=== PATIENT | male | born 1985 | race African-American/Black ===

== ENCOUNTER 2018-01-29 20:03 | Emergency (ER) | payer OTHER ==
[2018-01-29] MEDS: PANTOPRAZOLE 40MG INJ (PROTONIX) (C9113) IV (20:29)
[2018-01-29] MEDS: GI COCKTAIL 50ML BTL(HYOSCYAMINE/MAALOX/LIDOCAINE VISCOUS)(1:3:1) PO (20:29)
[2018-01-29 20:30] LABS: BASO % 0.5 % (0.0-1.0); EOS # 0.1 10^3/uL (0.0-0.50); EOS % 0.9 % (0.0-3.0); HEMATOCRIT 45.2 % (42.0-52.0); HEMOGLOBIN 15.8 g/dl (13.5-17.5); IMMATURE GRANULOCYTE % 0.2 % (0-3.0); LYMPH # 2.8 10^3/uL (1.5-4.5); LYMPH % 48.5 % (24.0-44.0); MEAN CORPUSCULAR VOLUME 85.9 fl (80.0-96.0); MONO # 0.7 10^3/uL (0.0-0.8); MONO % 11.2 % (0.0-5.0); NEUTROPHILS # 2.2 10^3/uL (1.8-7.7); NEUTROPHILS % 38.7 % (36.0-66.0); PLATELET COUNT, AUTOMATED 165 10^3/uL (150-450); RED BLOOD COUNT 5.26 10^6/uL (4.30-6.10); RED CELL DISTRIBUTION WIDTH 12.9 % (11.5-14.5); WHITE BLOOD COUNT 5.8 10^3/uL (4.0-10.0)
[2018-01-29 20:33] LABS: INR 1.07
[2018-01-29 20:34] LABS: PARTIAL THROMBOPLASTIN TIME 26.5 SECONDS (26.8-37.9)
[2018-01-29 20:43] LABS: ANION GAP 4 MEQ/L (8-16); BLOOD UREA NITROGEN 11 MG/DL (7-18); CALCIUM LEVEL 8.9 MG/DL (8.5-10.1); CARBON DIOXIDE LEVEL 30 MEQ/L (21-32); CHLORIDE LEVEL 107 MEQ/L (98-107); CPK CREATINE PHOSPHOKINASE 391 U/L (39-308); CREATININE FOR GFR 1.22 MG/DL (0.70-1.30); GLOMERULAR FILTRATION RATE > 60.0 (>60); GLUCOSE, FASTING 105 MG/DL (70-100); POTASSIUM SERUM 3.6 MEQ/L (3.5-5.1); SODIUM LEVEL 141 MEQ/L (136-145); TROPONIN I < 0.02 NG/ML (< 0.10)
[2018-01-29 20:44] LABS: MB/CK RELATIVE INDEX 0.25 (< OR =4)
[2018-01-29] MEDS ORDERED: ISOVUE-370 76% 100ML VIAL (Q9967) As Ordered (20:46)
== END 2018-01-29 21:52 | disposition home or self-care (01) ==
LOC: M ED 20:03
DX: K20.9 Esophagitis, unspecified (principal)
CPT/HCPCS: C9113

== ENCOUNTER 2019-03-22 03:22 | Day surgery (SDC) | payer OTHER ==
[~2019-03-22] VITALS: Ht 167.6 cm; Wt 95.0 kg
[2019-03-22] VITALS (7 sets, daily range): BP systolic 124–142; BP diastolic 69–75
[~2019-03-22 03:22] MED LIST: PROT1TAB2 PO
[2019-03-22] MEDS ORDERED: MORPHINE 4 MG/ML 1ML VIAL/SYRINGE (J2270) IV ONE ×2 (04:00→05:00)
[2019-03-22] MEDS ORDERED: NS 1,000 ML IV ONE (04:00)
[2019-03-22] MEDS ORDERED: ONDANSETRON 4MG/2ML VIAL (J2405) As Ordered ONE ×2 (04:08→10:24)
[2019-03-22] MEDS ORDERED: ONDANSETRON 4MG/2ML VIAL (J2405) IV ONE (04:15)
[2019-03-22 04:33] LABS: BASO % 0.6 % (0.0-1.0); EOS # 0.1 10^3/uL (0.0-0.50); EOS % 0.8 % (0.0-3.0); HEMATOCRIT 47.5 % (42.0-52.0); HEMOGLOBIN 16.3 g/dl (13.5-17.5); LYMPH # 3.6 10^3/uL (1.5-4.5); MEAN CORPUSCULAR HEMOGLOBIN 30.1 pg (27.0-33.0); MEAN CORPUSCULAR HGB CONC 34.3 g/dl (32.0-36.5); MEAN CORPUSCULAR VOLUME 87.8 fl (80.0-96.0); MONO # 0.6 10^3/uL (0.0-0.8); MONO % 8.8 % (0.0-5.0); NEUTROPHILS # 2.3 10^3/uL (1.8-7.7); NEUTROPHILS % 34.5 % (36.0-66.0); PLATELET COUNT, AUTOMATED 202 10^3/uL (150-450); RED BLOOD COUNT 5.41 10^6/uL (4.30-6.10); WHITE BLOOD COUNT 6.5 10^3/uL (4.0-10.0)
[2019-03-22 04:44] LABS: AMORPHOUS SEDIMENT SMALL (NEGATIVE); APPEARANCE, URINE CLEAR (CLEAR); BACTERIA, URINE AUTO NEGATIVE (NEGATIVE); BILIRUBIN, URINE AUTO NEGATIVE (NEGATIVE); BLOOD, URINE BLOOD NEGATIVE (NEGATIVE); COLOR, URINE STRAW (YELLOW); GLUCOSE, URINE (UA) AUTO NEGATIVE (NEGATIVE); KETONE, URINE AUTO NEGATIVE (NEGATIVE); LEUKOCYTE ESTERASE, URINE AUTO NEGATIVE (NEGATIVE); NITRITE, URINE AUTO NEGATIVE (NEGATIVE); PROTEIN, URINE AUTO NEGATIVE (NEGATIVE); RBC, URINE AUTO 1 /HPF (0-3); SPECIFIC GRAVITY URINE AUTO 1.015 (1.002-1.035); SQUAMOUS EPITHELIAL CELL UR AU 0 /HPF (0-6); UROBILINOGEN, URINE AUTO 0.2 mg/dL (0.0-2.0); WBC, URINE AUTO 0 /HPF (0-3)
[2019-03-22] MEDS ORDERED: ISOVUE-370 76% 100ML VIAL (Q9967) As Ordered ONE (04:53)
[2019-03-22 05:08] LABS: ALBUMIN 3.8 GM/DL (3.2-5.2); ALT/SGPT 57 U/L (12-78); BILIRUBIN,DIRECT < 0.1 MG/DL (0.0-0.2); BILIRUBIN,TOTAL 0.3 MG/DL (0.2-1.0); BLOOD UREA NITROGEN 11 MG/DL (7-18); CALCIUM LEVEL 8.9 MG/DL (8.5-10.1); CARBON DIOXIDE LEVEL 27 MEQ/L (21-32); CHLORIDE LEVEL 105 MEQ/L (98-107); CREATININE FOR GFR 1.15 MG/DL (0.70-1.30); GLOMERULAR FILTRATION RATE > 60.0 (>60); GLUCOSE, FASTING 135 MG/DL (70-100); LIPASE 220 U/L (73-393); POTASSIUM SERUM 4.1 MEQ/L (3.5-5.1); SODIUM LEVEL 138 MEQ/L (136-145); TOTAL PROTEIN 7.5 GM/DL (6.4-8.2)
--- NOTE | 2019-03-22 05:27 | REPVR ---
EXAM: CT Abdomen and Pelvis With Contrast EXAM DATE/TIME: 03/22/2019 5:02 AM CLINICAL HISTORY: 34 years old, male; Abdominal pain; Generalized TECHNIQUE: Imaging protocol: Axial computed tomography images of the abdomen and pelvis with intravenous contrast. Coronal and sagittal reformatted images were created and reviewed. Radiation optimization: All CT scans at this facility use at least one of these dose optimization techniques: automated exposure control; mA and/or kV adjustment per patient size (includes targeted exams where dose is matched to clinical indication); or iterative reconstruction. Contrast material: ISOVUE 370; Contrast volume: 100 ml; Contrast route: IV; COMPARISON: No relevant prior studies available. FINDINGS: Liver: Normal. No mass. Gallbladder and bile ducts: Normal. No calcified stones. No ductal dilation. Pancreas: Normal. No ductal dilation. Spleen: Normal. No splenomegaly. Adrenals: Normal. No mass. Kidneys and ureters: Normal. No hydronephrosis. Stomach and bowel: Normal. No obstruction. No mucosal thickening. Appendix: The appendix is dilated measuring up to 1.3 cm containing multiple appendicoliths without appreciable periappendiceal inflammation. Intraperitoneal space: Normal. No free air. No significant fluid collection. Vasculature: Normal. No abdominal aortic aneurysm. Lymph nodes: There is diffuse mesenteric haziness with shotty mesenteric lymph nodes. Bladder: Unremarkable as visualized. Reproductive: Unremarkable as visualized. Bones/joints: No acute fracture. No dislocation. Soft tissues: Unremarkable. IMPRESSION: 1. Dilated appendix up to 1.3 cm containing multiple appendicoliths suspicious for appendicitis although no significant periappendiceal inflammation seen. 2. Nonspecific mesenteric haziness with shotty lymph nodes. Correlate clinically for enteritis. Electronically signed by: Luis Naqvi On 03/22/2019 05:26:31 AM
[2019-03-22] MEDS ORDERED: METOCLOPRAMIDE INJ 10MG/2ML VIAL (J2765) IV ONE (05:30)
[2019-03-22] MEDS ORDERED: metroNIDAZOLE 500 MG in APPROPRIATE DILUENT 1 EA IV ONE (05:45)
[2019-03-22] MEDS ORDERED: PIPERACILLIN/TAZOBACTAM SOD 3.375 GM in D5W MINI-BAG PLUS 50 ML IV ONE (05:45)
[2019-03-22] MEDS ORDERED: PANT40TA3 PO (05:52)
[2019-03-22] MEDS ORDERED: MORPHINE 10 MG/ML 1ML VIAL (J2270) IV ONE ×2 (06:45)
[2019-03-22] MEDS: LR 1,000 ML IV SCH ×2 (08:15→18:15)
[2019-03-22] MEDS ORDERED: MORPHINE 4 MG/ML 1ML VIAL/SYRINGE (J2270) IV PRN (08:15)
[2019-03-22] MEDS ORDERED: ceFAZolin SOD 1 GM in D5W MINI-BAG PLUS 50 ML IV ONE (08:15)
--- NOTE | 2019-03-22 09:39 | HPEPDOC ---
General Surgery H&P Date of Admission Mar 22, 2019 Attending Physician: CLAUDIA VELASCO MD History and Physical CHIEF COMPLAINT: abdominal pain HISTORY OF PRESENT ILLNESS: Patient presented himself to the emergency apartment roughly about 2 AM for ongoing right-sided abdominal pain and discomfort as well as nausea that started about 8 PM last night and progressed through the night. He was previously well prior to this episode. Otherwise he is healthy 34-year-old male without any chronic medical problems. ALLERGIES: Please see below. HOME MEDICATIONS: Please see below. PAST MEDICAL HISTORY: 1. Gastroesophageal reflux. 2. Intermittent headaches. PAST SURGICAL HISTORY: 1. none PERSONAL/SOCIAL HISTORY: Denies smoking, alcohol use, or recreational drug use. REVIEW OF SYSTEMS: GENERAL: Denies chills, fatigue, fever, weight gain and weight loss. HEENT: Denies blurred vision and double vision. Denies ear symptoms. Denies hoarseness. NECK: Denies any neck pain. CARDIOVASCULAR: Denies chest pain and palpitations. MUSCULOSKELETAL: Denies arthralgias, back pain and thrombophlebitis. SKIN: Denies rash. NEUROLOGIC: Patient reports intermittent migraine-type headaches. PSYCHIATRIC: Denies anxiety and depression. ENDOCRINE: Denies thyroid disease. HEMATOLOGY/ONCOLOGY: Denies any bleeding or clotting disorder. HEART: Denies any chest pains, palpitations, paroxysmal dyspnea, orthopnea. PULMONARY: Denies chronic cough, dyspnea and wheezing. GASTROINTESTINAL: See HPI. GENITOURINARY: Denies dysuria, frequency, hematuria and nocturia. ENDOCRINE: Denies polydipsia, polyphagia, polyuria, heat or cold intolerance. INFECTIOUS: Denies any recent upper respiratory tract infection, UTI, need for use of antibiotics. NUTRITION: Reports good appetite. PHYSICAL EXAMINATION: VITAL SIGNS: Please see below. GENERAL APPEARANCE: Patient is sleeping in the time that I saw him, still looks somewhat uncomfortable. HEENT: Normocephalic, atraumatic. [place] palpebral conjunctivae. Anicteric sclerae. Lips moist. CHEST: No chest wall abnormalities. Normal respiratory motion/effort. NECK: Supple. No thyromegaly. No lymphadenopathies. LUNGS: Lung sounds are clear to auscultation bilaterally. No wheezing appreci ated. HEART: No chest wall abnormalities. Heart rate and rhythm are regular with no murmurs. ABDOMEN: Abdomen is relatively flat, soft, nondistended. Tender to palpation over the right lower quadrant area with mild guarding. Nontender and has had the abdomen. SKIN: Warm, moist. EXTREMITIES: Extremities have no deformities. No edema identified. NEUROLOGICAL: Sleeping when I entered room, easy to wake up, also, oriented. ANCILLARIES: . LABORATORY DATA: Please see below. MICROBIOLOGY: Please see below. IMAGING: CT abdomen and pelvis 1. Dilated appendix up to 1.3 cm containing multiple appendicoliths suspicious for appendicitis although no significant periappendiceal inflammation seen. 2. Nonspecific mesenteric haziness with shotty lymph nodes. Correlate clinically for enteritis. IMPRESSION AND PLAN: Acute Appendicitis with Localized Peritonitis Patient's history, clinical examination as well as imaging studies consistent with acute appendicitis with multiple appendicoliths within the lumen of the appendix with associated inflammation. He is localized tenderness over the right lower quadrant area. He is not showing any severe signs of sepsis so probably not perforated yet this point. We are making plans to bring him to the operating room to perform laparoscopic appendectomy. He has been given a dose of Zosyn 3.375 g have. I'll switch him to Unasyn as I don't believe he needs stat expanded coverage while awaiting surgery. I discussed with the patient the details of the proposed procedure, the benefits of performing the procedure, the most common risks on doing the procedure. This may include risks from general anesthesia, risks from laparoscopy including bowel injury, vascular injury, risks from the appendicitis including abscess formation. I have given him a chance to ask questions, voice out concerns. Patient has agreed to proceed Vital Signs Vital Signs Date Time Temp Pulse Resp B/P (MAP) Pulse Ox O2 Delivery O2 Flow Rate FiO2 03/22/19 06:53 88 97 03/22/19 06:50 136/70 (92) 03/22/19 06:45 20 03/22/19 06:08 97.2 03/22/19 04:30 Room Air I&Os I&O- Last 24 Hours up to 6 AM 03/22/19 06:00 Intake Total 1000 ml Balance 1000 ml Laboratory Data Labs 24H Laboratory Tests 2 03/22/19 04:15: Immature Granulocyte % (Auto) 0.3, White Blood Count 6.5, Red Blood Count 5.41, Hemoglobin 16.3, Hematocrit 47.5, Mean Corpuscular Volume 87.8, Mean Corpuscular Hemoglobin 30.1, Mean Corpuscular Hemoglobin Concent 34.3, Red Cell Distribution Width 13.2, Platelet Count 202, Neutrophils (%) (Auto) 34.5L, Lymphocytes (%) (Auto) 55.0H, Monocytes (%) (Auto) 8.8H, Eosinophils (%) (Auto) 0.8, Basophils (%) (Auto) 0.6, Neutrophils # (Auto) 2.3, Lymphocytes # (Auto) 3.6, Monocytes # (Auto) 0.6, Eosinophils # (Auto) 0.1, Basophils # (Auto) 0.0, Nucleated Red Blood Cells % (auto) 0.0, Urine Appearance CLEAR, Urine Color STRAW, Urine pH 6.0, Urine Specific [place] 1.015, Urine Protein NEGATIVE, Urine Glucose (UA) NEGATIVE, Urine Ketones NEGATIVE, Urine Urobilinogen 0.2, Urine Bilirubin NEGATIVE, Urine Leukocyte Esterase NEGATIVE, Urine Blood NEGATIVE, Urine Nitrite NEGATIVE, Urine WBC (Auto) 0, Urine RBC (Auto) 1, Urine Hyaline Casts (Auto) 0, Urine Bacteria (Auto) NEGATIVE, Urine Squamous Epithelial Cells 0, Urine Amorphous Sediment SMALLH, Urine Sperm (Auto) , Anion Gap 6L, Glomerular Filtration Rate > 60.0, Calcium Level 8.9, Aspartate Amino Transf (AST/SGOT) 40 H, Alanine Aminotransferase (ALT/SGPT) 57, Alkaline Phosphatase 76, Total Bilirubin 0.3, Direct Bilirubin < 0.1, Total Protein 7.5, Albumin 3.8, Albumin/Globulin Ratio 1.03, Lipase 220 CBC/BMP Laboratory Tests 03/22/19 04:15 Red Blood Count 5.41, Mean Corpuscular Volume 87.8, Mean Corpuscular Hemoglobin 30.1, Mean Corpuscular Hemoglobin Concent 34.3, Red Cell Distribution Width 13.2, Neutrophils (%) (Auto) 34.5 L, Lymphocytes (%) (Auto) 55.0 H, Monocytes (%) (Auto) 8.8 H, Eosinophils (%) (Auto) 0.8, Basophils (%) (Auto) 0.6, Neutrophils # (Auto) 2.3, Lymphocytes # (Auto) 3.6, Monocytes # (Auto) 0.6, Eosinophils # (Auto) 0.1, Basophils # (Auto) 0.0 Microbiology Microbiology 03/22/19 Urine Culture, Received Pending Home Medications Scheduled Pantoprazole Sodium (Pantoprazole Sodium) 40 Mg Tablet., 40 MG PO DAILY, (Reported) PATIENT STATES HE HAS NOT TAKEN IN A WHILE Allergies Coded Allergies: No Known Allergies (Unverified , 01/29/18) A-FIB/CHADSVASC A-FIB History Current/History of A-Fib/PAF?: No Current PO Anticoag Therapy: No CLAUDIA VELASCO MD Mar 22, 2019 07:16
[2019-03-22] MEDS ORDERED: BUPIVACAINE HCL 0.25% 30 ML VIAL As Ordered ONE (09:43)
[2019-03-22] MEDS ORDERED: LIDOCAINE 1% SDV INJ 30 ML VIAL As Ordered ONE (09:43)
[2019-03-22] MEDS ORDERED: UNASYN 1.5 GM VIAL As Ordered ONE (10:08)
[2019-03-22] MEDS ORDERED: LIDOCAINE 2% INJ 100 MG/5 ML SDV (FOR ANES.) As Ordered ONE ×2 (10:10→10:38)
[2019-03-22] MEDS ORDERED: ROCURONIUM BROMIDE 50 MG/5 ML VIAL As Ordered ONE (10:10)
[2019-03-22] MEDS ORDERED: PROPOFOL 200 MG/20 ML VIAL As Ordered ONE (10:10)
[2019-03-22] MEDS ORDERED: MIDAZOLAM INJ 2 MG/2 ML VIAL (J2250) As Ordered ONE (10:10)
[2019-03-22] MEDS ORDERED: dexameTHASONE 4 MG/ML 1ML VIAL (J1100) As Ordered ONE (10:11)
[2019-03-22] MEDS ORDERED: fentaNYL 100 MCG/2 ML INJECTION (J3010) As Ordered ONE ×2 (10:11→10:37)
[2019-03-22] MEDS ORDERED: SUGAMMADEX SODIUM 500 MG/5 ML VIAL (BRIDION) As Ordered ONE (10:24)
[2019-03-22] MEDS ORDERED: ACETAMINOPHEN 1000MG 100ML IV BTL (OFIRMEV) (J0131 PER 10MG) As Ordered ONE (10:37)
[2019-03-22] MEDS ORDERED: KETOROLAC 60 MG/2 ML VIAL (J1885) As Ordered ONE (10:37)
[2019-03-22] MEDS: AMPICILLIN SOD/SULBACTAM SOD 3 GM in D5W MINI-BAG PLUS 100 ML IV SCH ×2 (10:56→19:25)
[2019-03-22] MEDS ORDERED: LR 1,000 ML IV SCH ×2 (11:21→12:00)
[2019-03-22] MEDS ORDERED: ONDANSETRON 4MG/2ML VIAL (J2405) IV PRN ×2 (11:30→12:00)
[2019-03-22] MEDS ORDERED: NORCO, ANEXSIA 5/325MG TABLET (HYDROcodone/ACETAMINOPHEN) PO PRN (11:30)
[2019-03-22] MEDS ORDERED: AMPICILLIN SOD/SULBACTAM SOD 3 GM in D5W MINI-BAG PLUS 100 ML IV SCH (11:30)
[2019-03-22] MEDS ORDERED: KETOROLAC 30 MG/ML VIAL (J1885) IV PRN (11:30)
--- NOTE | 2019-03-22 11:33 | ROOPDOC ---
[facility] Report Of Operation Report of Operation DATE OF PROCEDURE: 03/22/19 PREPROCEDURE DIAGNOSES: Acute appendicitis. POSTPROCEDURE DIAGNOSES: Same. PROCEDURE: Laparoscopic appendectomy. SURGEON: Newton Hummel MD HOSPICE ENTRANCE ATTENDANT: ANESTHESIA: Gen. anesthesia. ESTIMATED BLOOD LOSS: Approximately 10 mL. COMPLICATIONS: None. REMARKS: Healthy 34-year-old male with 1 day history of abdominal pain centered in the right lower quadrant area, tenderness on the right lower abdomen and CT findings of dilated appendix with periappendiceal inflammation up to 1.3 cm. PROCEDURE NOTE: Appendix noted to be enlarged and dilated throughout its course up to the base which appears healthy. Prominent venous congestion. No perforation or ischemia. Minimal surrounding periappendiceal inflammation. No fluid collections or abscess. DESCRIPTION OF PROCEDURE: Patient has been given a dose of Zosyn perioperatively in the emegency room. Patient was brought to the operating room, placed supine on the table. Sequential compression device placed for DVT prophylaxis. General endotracheal anesthesia started. The abdomen prepped and draped in usual sterile fashion. After a surgical timeout, we began our surgery Entry into the abdomen done through an incision above the umbilicus. Veress needle inserted on a controlled fashion. Intra-abdominal placement confirmed with saline drop technique. CO2 insufflation started to a pressure of 15 mmHg. Using the same incision an 8 mm port was placed under direct vision of laparoscope. Insertion site was inspected for injury and none was found. He was placed on a Trendelenburg position the right side tilted to about 30 to allow for better visualization of the appendix. Two 5 mm working ports were placed at the suprapubic area and left lower quadrant area under direct vision. Operative findings: The appendix was easily identified and dilated and distended minimally purplish in color but no gross perforation. Prominent venous congestion on the alfaro. No noticeable free fluid collections or abscess noted. The appendix was located. The Surrounding bowels retracted away from the appendix. This was grasped to pull the base of the appendix into view. The mesoappendix was divided using Harmonic scalpel down to the base. Two PDS Endoloops were placed to ligate the appendix at its base then divided with a Harmonic Scalpel, the stump cauterized. Stump appears healthy. Appendix was then delivered into an Endo Catch bag by removing the 8 mm port. After re- insufflation the surgical site was inspected for hemostasis, Surrounding areas of the abdomen and inspected for fluid collections or signs of injury. The abdomen was deflated. All ports removed. The umbilical fascial defect repaired with 0 Vicryl in a mattress fashion. All skin incisions closed with 4-0 Monocryl in a subcuticular fashion. Steri-Strips and gauze dressing used for wound coverage. Patient was promptly awake and extubated and brought to recovery room stable. All counts of sponges and instruments verified to be correct. NEWTON HUMMEL MD Mar 22, 2019 11:33
[2019-03-22] MEDS ORDERED: METOCLOPRAMIDE INJ 10MG/2ML VIAL (J2765) IV PRN (12:00)
[2019-03-22] MEDS ORDERED: oxyCODONE 5MG TAB PO PRN (12:00)
[2019-03-22] MEDS ORDERED: MORPHINE 10 MG/ML 1ML VIAL (J2270) IV PRN (12:00)
[2019-03-22] MEDS ORDERED: fentaNYL 100 MCG/2 ML INJECTION (J3010) IV PRN (12:00)
[2019-03-22] MEDS: SENOKOT S TAB PO SCH (20:46)
[2019-03-23] VITALS: BP 132/72
[2019-03-23] MEDS: AMPICILLIN SOD/SULBACTAM SOD 3 GM in D5W MINI-BAG PLUS 100 ML IV SCH ×2 (01:38→06:55)
[2019-03-23 04:00] VITALS: BP 120/61
[2019-03-23] MEDS: LR 1,000 ML IV SCH (04:15)
[2019-03-23] MEDS: NORCO, ANEXSIA 5/325MG TABLET (HYDROcodone/ACETAMINOPHEN) PO PRN ×2 (05:02→12:26)
[2019-03-23 08:00] VITALS: BP 122/58
[2019-03-23] MEDS: SENOKOT S TAB PO SCH (08:47)
[2019-03-23] MEDS ORDERED: PANTOPRAZOLE 40MG TAB (PROTONIX) PO SCH (09:00)
[2019-03-23] MEDS ORDERED: HYDR-4571 PO (10:35)
--- NOTE | 2019-03-23 10:39 | IPNPDOC ---
Subjective General Date/Time Seen The patient was seen on 03/23/19 at 10:37. Subject Chief Complaint/History The patient is a 34-year-old male admitted with a reason for visit of Acute Appendicitis. Patient reports feeling comfortable. He is tolerating regular food. He denies any nausea, vomiting, diarrhea. No febrile episodes. Current Medications Current Medications Current Medications Acetaminophen/ Hydrocodone Bitart ([place], Anexsia 5/325) 1 tab Q4HP PRN PO MODERATE PAIN (PS 5-7) Last administered on 03/23/19at 05:02; Start 03/22/19 at 11:30 Acetaminophen/ Hydrocodone Bitart ([place], Anexsia 5/325) 2 tab Q6HP PRN PO SEVERE PAIN (PS 8-10); Start 03/22/19 at 11:30 Ampicillin Sodium/ Sulbactam Sodium 3 gm/Dextrose 100 ml @ 200 mls/hr Q6H IV ; Start 03/22/19 at 11:30; Stop 03/22/19 at 12:09; Status DC Ampicillin Sodium/ Sulbactam Sodium 3 gm/Dextrose 100 ml @ 200 mls/hr Q6H IV L ast administered on 03/23/19at 06:55; Start 03/22/19 at 13:00 Fentanyl Citrate (Sublimaze) 25 mcg Q5MP PRN IV MODERATE PAIN (PS 4-7); Start 03/22/19 at 12:00; Stop 03/22/19 at 13:00; Status DC Home Med (Med Rec Complete!) ASDIRECTED XX ; Start 03/22/19 at 06:00; Stop 03/22/19 at 06:08; Status DC Ketorolac Tromethamine (ToRADol) 30 mg Q6HP PRN IV MILD/MODERATE PAIN (PS 1-7) Last administered on 03/23/19at 10:20; Start 03/22/19 at 11:30; Stop 03/27/19 at 11:29 Lactated Ringer's 1,000 ml @ 100 mls/hr Q10H IV Last administered on 03/22/19at 08:15; Start 03/22/19 at 08:15 Lactated Ringer's 1,000 ml @ 100 mls/hr Q10H IV ; Start 03/22/19 at 11:21; Stop 03/22/19 at 12:06; Status DC Lactated Ringer's 1,000 ml @ 100 mls/hr Q10H IV ; Start 03/22/19 at 12:00; Stop 03/22/19 at 13:00; Status DC Metoclopramide HCl (REGLAN INJection) 10 mg Q6HP PRN IV NAUSEA OR VOMITING; Start 03/22/19 at 12:00; Stop 03/22/19 at 13:00; Status DC Morphine Sulfate (Morphine Sulfate Inj) 2 mg Q5M PRN IV MODERATE/SEVERE PAIN (PS 5-10); Start 03/22/19 at 12:00; Stop 03/22/19 at 13:00; Status DC Morphine Sulfate (Morphine Sulfate Inj) 4 mg Q4H PRN IV PAIN; Start 03/22/19 at 08:15 Ondansetron HCl (ZOFRAN INJection) 4 mg Q4HP PRN IV NAUSEA OR VOMITING; Start 03/22/19 at 12:00; Stop 03/22/19 at 13:00; Status DC Ondansetron HCl (ZOFRAN INJection) 4 mg Q6HP PRN IV NAUSEA OR VOMITING; Start 03/22/19 at 11:30 Oxycodone HCl (Roxicodone, Oxyir) 5 mg ASDIRECTED PRN PO MILD/MODERATE PAIN (PS 1-7); Start 03/22/19 at 12:00; Stop 03/22/19 at 13:00; Status DC Pantoprazole Sodium (Protonix) 40 mg DAILY PO Last administered on 03/23/19at 08:47; Start 03/23/19 at 09:00 Senna/Docusate Sodium (Senokot S) 1 tab BID PO Last administered on 03/23/19at 08:47; Start 03/22/19 at 21:00 Allergies Coded Allergies: No Known Allergies (Unverified , 01/29/18) Objective Physical Examination Examination GENERAL APPEARANCE:comfortable. SKIN: Warm and moist. HEENT: Normocephalic, atraumatic. [place] palpebral conjunctiva, anicteric sclerae. Lips and mucosa appear moist. NECK: Supple, no thyromegaly. No obvious jugular venous distention. LUNGS: Clear to auscultation bilaterally. No wheezing appreciated. HEART: No chest wall abnormalities. Regular rate and rhythm with no murmurs appreciated. ABDOMEN: Abdomen is nondistended, soft, nontender on palpation. laparoscopic appendectomy port sites dressings clean, dry, intact.. EXTREMITIES: Extremities have no deformities. No edema identified. Vital Signs Vital Signs Date Time Temp Pulse Resp B/P (MAP) Pulse Ox O2 Delivery O2 Flow Rate FiO2 03/23/19 08:00 98.1 68 17 122/58 (79) 100 03/22/19 11:49 2 03/22/19 09:20 Room Air I&Os I&O- Last 24 Hours up to 6 AM 03/23/19 05:59 Intake Total 3130 ml Output Total 2600 ml Balance 530 ml Laboratory Data Microbiology Microbiology 03/22/19 Urine Culture - Final, Complete Impression POD1 Laparoscopic Appendectomy for Acute Appendicitis looks well OK to go home no further antibiotics follow up with me in 2 weeks Plan / VTE VTE Prophylaxis Ordered?: No VTE Exclusion Mechanical Proph: Low Risk for VTE CLAUDIA VELASCO MD Mar 23, 2019 10:39
[2019-03-23 12:00] VITALS: BP 147/70
== END 2019-03-23 14:15 | disposition home or self-care (01) ==
LOC: M ED 03:22 → M SDC 07:17 → M PED 12:50 → M SDC 03-23 14:15
PROVIDERS: ATTEND Surgery
DX: K35.890 Other acute appendicitis without perforation or gangrene (principal); K21.9 Gastro-esophageal reflux disease without esophagitis
CPT/HCPCS: 36415; 44970; 74177; 80048; 80076; 81001; 83690; 85025; 87086; 88302; 96361; 96365; 96375; 96376; 99285; J0131; J1100; J1885; J2250; J2270; J2405; J2543; J2765; J3010; Q9967

== ENCOUNTER 2019-12-04 01:07 | Emergency (ER) | payer OTHER ==
[~2019-12-04] VITALS: Ht 182.9 cm; Wt 98.6 kg
[~2019-12-04 01:07] MED LIST changes: +HYDR-4571 PO; +PANT40TA3 PO
[2019-12-04] MEDS ORDERED: ACETAMINOPHEN TAB 650MG DOSE (2X325MG) PO ONE (02:30)
[2019-12-04 05:30] VITALS: BP 125/81
== END 2019-12-04 05:44 | disposition home or self-care (01) ==
LOC: M ED 01:07
DX: R50.9 Fever, unspecified (principal); J06.9 Acute upper respiratory infection, unspecified

== ENCOUNTER 2019-12-10 11:14 | Emergency (ER) | payer OTHER ==
[2019-12-10] MEDS ORDERED: ACET-683 PO (11:23)
[2019-12-10 12:01] LABS: BASO % 0.4 % (0.0-1.0); HEMATOCRIT 47.3 % (42.0-52.0); HEMOGLOBIN 16.3 g/dl (13.5-17.5); LYMPH # 1.6 10^3/uL (1.5-5.0); LYMPH % 28.8 % (24.0-44.0); MEAN CORPUSCULAR HEMOGLOBIN 29.5 pg (27.0-33.0); MEAN CORPUSCULAR HGB CONC 34.5 g/dl (32.0-36.5); MEAN CORPUSCULAR VOLUME 85.5 fl (80.0-96.0); MONO # 0.6 10^3/uL (0.0-0.8); MONO % 10.8 % (0.0-5.0); NEUTROPHILS # 3.2 10^3/uL (1.5-8.5); NEUTROPHILS % 59.8 % (36.0-66.0); PLATELET COUNT, AUTOMATED 101 10^3/uL (150-450); RED BLOOD COUNT 5.53 10^6/uL (4.30-6.10); WHITE BLOOD COUNT 5.4 10^3/uL (4.0-10.0)
[2019-12-10] MEDS ORDERED: ISOVUE-370 76% 100ML VIAL (Q9967) As Ordered ONE (12:13)
[2019-12-10] MEDS ORDERED: NS 1,000 ML IV SCH (12:15)
[2019-12-10 12:28] LABS: ALBUMIN 3.4 GM/DL (3.2-5.2); ALT/SGPT 109 U/L (12-78); BILIRUBIN,DIRECT 0.2 MG/DL (0.0-0.2); BILIRUBIN,TOTAL 0.5 MG/DL (0.2-1.0); BLOOD UREA NITROGEN 9 MG/DL (7-18); CALCIUM LEVEL 8.3 MG/DL (8.5-10.1); CARBON DIOXIDE LEVEL 26 MEQ/L (21-32); CHLORIDE LEVEL 103 MEQ/L (98-107); GLOMERULAR FILTRATION RATE > 60.0 (>60); GLUCOSE, FASTING 137 MG/DL (70-100); LIPASE 63 U/L (73-393); POTASSIUM SERUM 3.9 MEQ/L (3.5-5.1); SODIUM LEVEL 136 MEQ/L (136-145); TOTAL PROTEIN 6.9 GM/DL (6.4-8.2); TROPONIN I < 0.02 NG/ML (< 0.10)
[2019-12-10 12:32] LABS: CK-MB VALUE MASS 1.9 NG/ML (<3.6); CPK CREATINE PHOSPHOKINASE 3207 U/L (39-308); MB/CK RELATIVE INDEX 0.06 (< OR =4)
[2019-12-10] MEDS ORDERED: ACETAMINOPHEN TAB 650MG DOSE (2X325MG) PO ONE ×2 (13:15→15:45)
--- NOTE | 2019-12-10 13:58 | REP ---
CT ANGIOGRAM CHEST: TECHNIQUE: Axial contrast enhanced images from the thoracic inlet to the upper abdomen using 100 mL Isovue 370 intravenous contrast material with multiplanar reformations. There is no CT evidence of pulmonary embolism. There is no thoracic aneurysm or dissection. The heart is normal in size. There is no evidence of mediastinal, hilar or chest wall adenopathy. There is no pericardial effusion. There is a tiny right pleural effusion. There are patchy parenchymal infiltrates with ground-glass attenuation bilaterally, which are primarily peripherally located. There are small areas of more dense consolidative opacity. Visualized upper abdominal structures are unremarkable. IMPRESSION: Scattered diffuse bilateral predominantly peripheral ground-glass infiltrates with small areas of intermingled consolidative opacity in both lungs. Findings are compatible with COVID-19 infection. Tiny right pleural effusion. No evidence of pulmonary embolism. Electronically Signed by Vazquez Sanford MD 12/10/2019 02:10 P
[2019-12-10] MEDS ORDERED: NS 1,000 ML IV ONE (14:30)
--- NOTE | 2019-12-10 14:49 | CR.PDOC ---
General Date of Consultation: Dec 10, 2019 Consultation REASON FOR CONSULTATION/CHIEF COMPLAINT: Rhabdomyolysis / Who presented to the emergency room with complaints of pleuritic chest pain HISTORY OF PRESENT ILLNESS: Patient is a 34-year-old male with a PMHx of GERD, Hx of Malaria (s/p Chloroquine) and recent diagnosis of COVID-19 (Friday12/04/2019) who presented to the ER with complaints of chest pain that started 2 days ago. Patient reports that hes been experiencing pleuritic chest pain for the last 2 days. He notes that when he coughs he begins to experience chest pain across the front of his chest. Alleviated with rest, aggravated with cough. He continues to experience fevers at home. He reported that on Friday when he was diagnosed here, he had a temperature of 102. Currently in the emergency room, he has a temperature of 101.8. Patient reports that he does not feel shortness of breath at rest or with movement, but does experience profuse coughing with mild expectoration of sputum described as clear without evidence of blood. Patient has indicated that he has some nausea and constipation. Denies any abdominal discomfort, urinary discomfort or vomiting. Emergency room providers have contacted hospitalist service after completing lab work that had indicated an elevated CK level. Patient has attested that he has not been drinking enough fluids over the last 7 days. He also reports that he had history of rhabdomyolysis from a gym workout several years ago. ALLERGIES: Please see below. HOME MEDICATIONS: Please see below. 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 and travels in [facility] - Lives with at [address] - Occupation; retiree from [employer] REVIEW OF SYSTEMS: 10 point review of systems complete, all negative otherwise stated in HPI PHYSICAL EXAMINATION: - Vitals: BP 135/83, HR 98, RR 18, Sat 97%RA, Temp 98.1F - General: Lying in bed, Speaking in full sentences, Mask in place, AAOx3 - HEENT: NC, AT, PERRLA - CVS: RRR, +S1S2 - Lungs: Fair air entry bilaterally, No appreciable wheezing / rales / rhonchi - Abdomen: Soft, Non-distended, Non-tender - Extremities: No lower extremity edema, No calf tenderness - Neuro: No focal motor or sensory deficit - Skin: No visible rashes LABORATORY DATA: Please see below. ASSESSMENT/PLAN: Rhabdomyolysis - likely 2/2 poor oral intake of fluids with fevers - Patient has reported that he has not remain hydrated of the last 7 days - He denies any nausea or vomiting and attests that he can continue to take in oral fluid hydration - Patients fevers in the emergency room have resolved with Tylenol - Patient CK levels were noted to be elevated at 3200 - Elevated AST / ALT - likely 2/2 rhabdomyolysis - Patient will be given 1 L bolus with instructions to increase fluid hydration orally by at least 1.5-2 liters daily with an electrolyte based drink - Discussed patients option for observation for continued hydration vs home; discussed risks and benefits - At this point, patient would like to go home after receiving IV fluid hydration he has indicated he will increase his fluid intake - Advised that we will repeat CK levels after IV fluid hydration; assuming they continue to trend down he will be discharged home - Case was discussed with ER provider Pleuritic chest pain - likely 2/2 COVID 19 infection, unlikely 2/2 pulmonary embolism, unlikely 2/2 cardiac etiology - Patient currently saturating well on room air at 97% - Patient reports that his pleuritic chest pain is nonexistent when he doesnt cough - Patient is hemodynamically stable and is currently afebrile - EKG was reviewed without any evidence of ischemic change - CTA Chest 12/09: PATCHY BILATERAL PERIPHERAL GROUND GLASS INFILTRATES COMPATIBLE WITH COVID19. SOME SMALL AREAS OF CONSOLIDATION. TINY RT EFFUSION. NO PE - Advised that he continue with Tylenol to control fevers - Patient has requested that he get Hydroxychloroquine upon discharge (400mg PO BID x 1 day, 200mg PO BID x 4 day) discussed with ER provider - Continue home quarantine - Discussed case with Infectious disease, Dr. Oliva Elevated AST and ALT - Likely a result of rhabdomyolysis - Advised patient that repeat lab work should be completed after his acute condition resolves - If levels continue to persistently remain elevated, consider hepatitis profile - This has been described to the patient Thrombocytopenia - likely 2/2 acute viral illness - No evidence of bleeding - Will need repeat lab work completed once acute episodes resolve Hx of Malaria - s/p Chloroquine treatment GERD - Currently not on any medication DVT prophylaxis - Will consider starting Heparin on admission Vital Signs/I&O Vital Signs Date Time Temp Pulse Resp B/P (MAP) Pulse Ox O2 Delivery O2 Flow Rate FiO2 12/10/19 14:30 150/81 (104) 12/10/19 14:29 112 20 98 Room Air 12/10/19 11:29 98.1 Laboratory Data Labs 24H Laboratory Tests 2 12/10/19 11:39: Immature Granulocyte % (Auto) 0.2, Neutrophils (%) (Auto) 59.8, Lymphocytes (%) (Auto) 28.8, Monocytes (%) (Auto) 10.8H, Eosinophils (%) (Auto) 0.0, Basophils (%) (Auto) 0.4, Neutrophils # (Auto) 3.2, Lymphocytes # (Auto) 1.6, Monocytes # (Auto) 0.6, Eosinophils # (Auto) 0.0, Basophils # (Auto) 0.0, Nucleated Red Blood Cells % (auto) 0.0, Anion Gap 7L, Glomerular Filtration Rate > 60.0, Calcium Level 8.3L, Total Bilirubin 0.5, Direct Bilirubin 0.2, Aspartate Amino Transf (AST/SGOT) 122H, Alanine Aminotransferase (ALT/SGPT) 109H, Alkaline Phosphatase 63, Total Creatine Kinase 3207H, Creatine Kinase MB 1.9, Creatine Kinase MB Relative Index 0.06, Troponin I < 0.02, Total Protein 6.9, Albumin 3.4, Albumin/Globulin Ratio 0.97L, Lipase 63L CBC/BMP Laboratory Tests 12/10/19 11:39 Allergies Coded Allergies: No Known Allergies (Unverified , 01/29/18) Home Medications Scheduled Hydroxychloroquine Sulfate (Hydroxychloroquine Sulfate) 200 Mg Tablet, 200 MG PO ASDIRECTED, #12 Take 400 mg (2 tablets) twice daily for Day 1. Then for the next 4 days take 200 mg (1 tablet) twice daily. Scheduled PRN Acetaminophen (Acetaminophen) 500 Mg Tablet, 1,000 MG PO Q6H PRN for PAIN / FEVER, (Reported) ELIE AMARAL MD Dec 10, 2019 14:49
[2019-12-10] MEDS ORDERED: HYDR200T3 PO (17:41)
[2019-12-10] MEDS ORDERED: HYDROXYCHLOROQUINE 200 MG TAB PO ONE (18:00)
[2019-12-10 18:10] VITALS: BP 133/79
--- NOTE | 2019-12-10 18:43 | ECGEPIP ---
[facility] - ED Test Date: 2019-12-10 Pat Name: MARCE CALDWELL Department: Room: - Gender: Male Replacer: : [id number] Requested By: MICHAEL Carrington Order Number: [id number] Reading MD: Payal Casas Measurements Intervals [place] Rate: 100 P: 51 NE: 147 QRS: 45 QRSD: 90 T: -11 QT: 319 QTc: 411 Interpretive Statements SINUS TACHYCARDIA NONSPECIFIC T-WAVE ABNORMALITY ABNORMAL RHYTHM ECG Electronically Signed on 12-10-2019 18:43:14 EDT by Payal Casas
== END 2019-12-10 18:13 | disposition home or self-care (01) ==
LOC: EDBD 11:14 → M ED 11:14
DX: R91.8 Other nonspecific abnormal finding of lung field (principal); M62.82 Rhabdomyolysis; B97.29 Other coronavirus as the cause of diseases classified elsewhere
CPT/HCPCS: 71275; 80048; 80076; 81002; 82550; 82553; 83690; 84484; 85025; 93005; 93041; 94760; 96360; 96361; 99285; Q9967

== ENCOUNTER → 2020-05-27 | Outpatient (CLI) | payer OTHER, SELFPAY ==
[~2020-05-27] MED LIST changes: +ACET-683 PO; +HYDR200T3 PO; +PANT40TA29 PO; -PANT40TA3 PO
== END ==
LOC: M LABSMTC 10:14
PROVIDERS: ATTEND Family Medicine
DX: Z11.59 Encounter for screening for other viral diseases (principal); Z20.828 Contact with and (suspected) exposure to other viral communicable diseases

== ENCOUNTER → 2021-05-30 | Outpatient (CLI) | payer SELFPAY ==
--- NOTE | 2021-05-30 15:45 | REP ---
INDICATION: TB SCREENING COMPARISON: 02/17/2018. TECHNIQUE: PA/Lateral FINDINGS: Lungs: Clear, no infiltrate. Heart: Normal in size. Mediastinum: Mediastinal silhouette unremarkable. Pleural angles: Unremarkable.. Bones and soft tissues: Unremarkable. IMPRESSION: No acute pulmonary disease. <Electronically signed by Vazquez Sanford > 05/30/21 [id number]
== END ==
LOC: M WUC 14:50
PROVIDERS: ATTEND Family Medicine Adult Medicine
DX: R76.11 Nonspecific reaction to tuberculin skin test without active tuberculosis (principal)

== ENCOUNTER → 2023-09-30 | Outpatient (REF) | payer OTHER ==
[~2023-09-30] MED LIST changes: -HYDR200T3 PO; +HYDR200T46 PO
== END ==
LOC: M LAB REF 12:17
PROVIDERS: ATTEND Physician Assistant Medical
DX: B34.9 Viral infection, unspecified (principal)